=== PATIENT | male | born 1990 | race African-American/Black ===

== ENCOUNTER 2019-03-16 09:06 | Observation (INO) | payer BC, SELFPAY ==
[2019-03-16] MEDS ORDERED: Albuterol Sulfate 2.5 mg/0.5 ml Neb ONE ×3 (10:22→13:24)
[2019-03-16] MEDS ORDERED: Albuterol Sulfate 2.5 mg/3 ml Neb ONE ×2 (10:22→18:34)
[2019-03-16] MEDS ORDERED: Magnesium 2 GM/50 ML BAG (IN WATER) ONE (11:20)
[2019-03-16] MEDS ORDERED: Dexamethasone 10 MG/ML VIAL ONE (11:20)
[2019-03-16] MEDS ORDERED: methylPREDNISolone Sod Succ/PF 125 MG/2 ML VIAL ONE (11:20)
--- NOTE | 2019-03-16 11:20 | RAD ---
EXAM: Chest 2 views: HISTORY: Wheezing and difficulty breathing COMPARISON: None. FINDINGS: There is a normal-sized cardiomediastinal silhouette. There is no evidence of consolidation, mass, or pleural effusion. The bones are unremarkable. IMPRESSION: No evidence of acute cardiopulmonary disease
[2019-03-16 11:49] LABS: #Basophils 0.1 thou/uL (0.0-0.2); #Eosinphils 0.6 thou/uL (0.0-0.7); #Lymphocytes 1.5 thou/uL (1.20-3.40); #Monocytes 0.8 thou/uL (0.11-0.59); #Neutrophils 12.3 thou/uL (1.40-6.50); %Basophils 0.3 % (0.0-1.0); %Eosinophils 4.2 % (0.0-10.0); %Lymphocytes 9.6 % (21.0-51.0); %Monocytes 5.5 % (0.0-10.0); %Neutrophils 80.4 % (42.0-75.0); Hemoglobin 15.5 g/dL (14.0-18.0); Mean Corpuscular Hemoglobin 26.7 pg (27.0-31.0); Mean Corpuscular Volume 80.8 fL (78.0-98.0); Mean Platelet Volume 7.8 fL (7.4-10.4); Platelet Count 276 thou/uL (130-400); Red Blood Cell (RBC) Count 5.81 mill/uL (4.70-6.10); White Blood Cell (WBC) Count 15.3 thou/uL (4.8-10.8)
[2019-03-16 12:17] LABS: Anion Gap 17 mmol/L (10-20); BUN (Urea Nitrogen) 12 mg/dL (8.9-20.6); Calc. Creatinine Clearance 0 mL/min (70-130); Calcium 10.7 mg/dL (7.8-10.44); Carbon Dioxide 24 mmol/L (22-29); Chloride 100 mmol/L (98-107); Estimated GFR-MDRD Greater than 90; Glucose 110 mg/dL (70-105); Potassium 3.7 mmol/L (3.5-5.1); Sodium 137 mmol/L (136-145)
--- NOTE | 2019-03-16 14:09 | PDOC.FPRHP ---
- History of Present Illness Chief Complaint: SOB History of Present Illness: Pt is a 28 yo M who presents with SOB. He says he has had 2 previous hospitalizations in the past year. He had asthma bad as a child, but it has improved. He said he has used his inhaler 4 times in the past week. He said night before last he began coughing before bed and producing yellow sputum. He said he had the episode again last night and used his inhaler and took Advil pm then woke up SOB, so he took a shower and used his inhaler again, but it did not help. He has had rhinorrhea and congestion. He denies fever. No sick contacts. He says his asthma is exacerbated by heat and seasonal changes. He has woken 2 times over the past month short of breath. He works in construction. ED Course: He was given 3 breathing treatments, 2g mag, 2L NS, and steroids (Solumedrol 125 mg, Dexamethasone 10 mg) Chest xray: No acute Cardiopulm process. Hyper-expanded lungs. - History PMHx: Asthma PSHx: None FHx: Breast Cancer in [place] [facility] [place]. Social: Smokes marijuana occasionally. Has not smoked recently. Drinks socially , 4-5 beers with events. No tobacco products. - Review of Systems General: denies: fever/chills Eyes: denies: vision changes ENT: reports: nasal congestion, rhinorrhea Respiratory: reports: cough, congestion. denies: shortness of breath Cardiovascular: reports: paroxysmal nocturnal dyspnea. denies: chest pain, orthopnea Gastrointestinal: denies: nausea, vomiting, diarrhea Genitourinary: denies: dysuria Skin: denies: rashes Musculoskeletal: reports: pain (L paraspinal muscle pain) Neurological: denies: numbness, weakness - Vital signs BP: 128/88 HR: 123 RR: 21 Tmax: 97.8 Pox: 100% on 3L Wt: 81 kg - Physical Exam Constitutional: NAD, awake, alert and oriented HEENT: normocephalic and atraumatic, PERRLA, EOMI Neck: supple Chest: no-tender to palpation, no lesions Heart: normal S1/S2 -Heart: Tachycardic with regular rate -Lungs: Diffuse wheezing more prominent on the left. Abdomen: soft, non-tender, bowel sounds present Musculoskeletal: normal structure, normal tone, ROM grossly normal Neurological: no focal deficit, CN II-XII intact Skin: no rash/lesions Heme/Lymphatic: no unusual bruising or bleeding Psychiatric: normal mood and affect, good judgment and insight FMR H&P: Results - Labs Result Diagrams: 03/16/19 11:35 03/16/19 11:35 Lab results: WBC 15.3 thou/uL (4.8-10.8) H 03/16/19 11:35 Hgb 15.5 g/dL (14.0-18.0) 03/16/19 11:35 Hct 47.0 % (42.0-52.0) 03/16/19 11:35 MCV 80.8 fL (78.0-98.0) 03/16/19 11:35 Plt Count 276 thou/uL (130-400) 03/16/19 11:35 Neutrophils % 80.4 % (42.0-75.0) H 03/16/19 11:35 Sodium 137 mmol/L (136-145) 03/16/19 11:35 Potassium 3.7 mmol/L (3.5-5.1) 03/16/19 11:35 Chloride 100 mmol/L (98-107) 03/16/19 11:35 Carbon Dioxide 24 mmol/L (22-29) 03/16/19 11:35 BUN 12 mg/dL (8.9-20.6) 03/16/19 11:35 Creatinine 0.98 mg/dL (0.7-1.3) 03/16/19 11:35 Glucose 110 mg/dL (70-105) H 03/16/19 11:35 Calcium 10.7 mg/dL (7.8-10.44) H 03/16/19 11:35 FMR H&P: A/P - Problem List (1) Asthma exacerbation Current Visit: Yes Status: Acute Code(s): J45.901 - UNSPECIFIED ASTHMA WITH (ACUTE) EXACERBATION Qualifiers: Asthma severity: moderate - Plan Mr. Castillo is a 28 yo M with a history of asthma who presents with SOB. 1. Moderate Asthma Exacerbation Pt has diffuse wheezing on exam after 3 neb treatments, 2g mag, and steroids ( Solumedrol 125 mg and Dexamethasone 10 mg) * Home Medication: Proair * Asthma Exacerbation: 2 in 5 years. Brought on by seasonal changes and heat * He is on 3L sating 100% * Albuterol neb Q4H scheduled with Q2H prn * Prednisone 40 mg daily for 5 days * Cxray showed no infiltrate, but did show hyper-expanded lungs. * WBC: 15.3 most likely 2/2 steroids Diet: Regular Activity: Ad Gabby DVT Prophylaxis: None, Low VTE risk Lines: Peripheral Dispo: Obs, pt is currently stable. Will control his asthma symptoms and likely D/C within 2 days pending clinical course. FMR H&P: Upper Level - Plan Date/Time: 03/16/19 [id number] IMichael MD, have evaluated this patient and agree with findings/plan as outlined by manager internship resident. Pertinent changes/additions are listed here. Nilo Mallory is a 28 year old M with a PMH of Asthma and Seasonal Allergies who presented to the ED with a couple day history of dyspnea. Patient has had increased work of breathing and dyspnea over the last couple nights, occasionally waking him from sleep. He has used his ProAir HFA inhaler several times and initially, it improved his symptoms, but last night, it did not improve them. States that he has had 2 hospitalizations in the last year for asthma exacerbations. States that he does not take any daily inhalers, only has his rescue inhaler. He does take OTC medications for his allergies, which he states has been uncontrolled lately too. He denies any fevers, chills, chest pain, rashes, abdominal pain, n/v. In the ED, he was tachypneic and tachycardic, he was given 2 L NS, 2 Alb sulfate nebs, 1 duoneb, solumedrol 125 mg, dexamethasone 10 mg. His respiratory status improved and he was in less distress. On admission, his vitals were O2 sat 98 on 3L, HR 114, RR 22, afebrile. On exam, lungs were tight with expiratory wheezes. CXR showed no acute cardiopulmonary findings, lungs appears hyperexpanded. EKG showed sinus tachycardia, right atrial enlargement, pulmonary disease pattern. Labs were significant for WBC count of 15.3, CBC and CMP were otherwise normal. Patient is being admitted to obs/medical for moderate asthma exacerbation. Will continue q4hr Albuterol Sulfate with q2h prn alb sulfate. Start prednisone 40 mg po daily. Continue to monitor O2 sats, goal of at least 94%. Please see manager internship note above for full H&P, which I have reviewed and agree with. Addendum - Attending - Attending Attestation Date/Time: 03/17/19 7787 I personally evaluated the patient and discussed the management with Dr. Petty and Paulino on 03/16. I agree with the History, Examination, Assessment and Plan documented above with any addition or exceptions noted below. Patient is still having some mild shortness of breath but says he feels "10 times better" than when he came in. Continue nebs and steroids. Hopeful d/c in AM if continued improvement.
[2019-03-16] MEDS ORDERED: Senokot S 8.6-50 MG TAB PO PRN (16:04)
[2019-03-16] MEDS ORDERED: Albuterol Sulfate 1.25 MG/3 ML NEB NEB SCH (16:04)
[2019-03-16] MEDS ORDERED: Ondansetron ODT 4 MG TAB PO PRN (16:04)
[2019-03-16] MEDS ORDERED: Famotidine 20 MG TAB PO PRN (16:04)
[2019-03-16] MEDS ORDERED: Albuterol Sulfate 1.25 MG/3 ML NEB NEB PRN ×2 (16:04→16:06)
[2019-03-16 16:11] VITALS: BMI 24.1
[2019-03-16] MEDS: Albuterol Sulfate 1.25 MG/3 ML NEB NEB SCH ×2 (18:37→22:07)
[2019-03-17] MEDS: Albuterol Sulfate 1.25 MG/3 ML NEB NEB SCH ×2 (02:08→08:04)
--- NOTE | 2019-03-17 05:36 | PDOC.FM ---
- Subjective Subjective: Pt is doing well this morning. He is producing less sputum and says after his treatment at 4 this morning he has not had any symptoms of cough. - Objective MAR Reviewed: Yes Vital Signs & Weight: Vital Signs (12 hours) Temp Pulse Resp BP Pulse Ox 03/17/19 02:20 95 03/17/19 02:08 12 03/16/19 22:55 98.8 F 112 H 18 122/67 95 03/16/19 22:07 16 03/16/19 19:31 98.2 F 120 H 20 127/70 98 03/16/19 18:37 112 H 20 95 Weight Weight 80.739 kg I&O: 03/15/19 03/16/19 03/17/19 06:59 06:59 06:59 Intake Total 240 Balance 240 Result Diagrams: 03/16/19 11:35 03/16/19 11:35 Phys Exam - Physical Examination Constitutional: NAD HEENT: PERRLA, moist MMs Neck: no nodes, supple, full ROM Respiratory: no wheezing Mildly decrease breath sound most likely 2/2 to expanded lungs. Cardiovascular: no significant murmur, no rub Tachycardic with regular rhythm Gastrointestinal: soft, non-tender, positive bowel sounds Musculoskeletal: no edema, pulses present Neurological: moves all 4 limbs Lymphatic: no nodes Psychiatric: normal affect, A&O x 3 Skin: no rash, normal turgor Dx/Plan (1) Asthma exacerbation Code(s): J45.901 - UNSPECIFIED ASTHMA WITH (ACUTE) EXACERBATION Status: Acute Qualifiers: Asthma severity: moderate - Plan Plan: Mr. Castillo is a 28 yo M with a history of asthma who presents with SOB. 1. Moderate Asthma Exacerbation Pt has diffuse wheezing on exam after 3 neb treatments, 2g mag, and steroids ( Solumedrol 125 mg and Dexamethasone 10 mg) * Home Medication: Proair * Asthma Exacerbation: 2 in 5 years. Brought on by seasonal changes and heat * He is on 3L sating 100% * Albuterol neb Q4H scheduled with Q2H prn * Prednisone 40 mg daily for 5 days * Cxray showed no infiltrate, but did show hyper-expanded lungs. * WBC: 15.3 most likely 2/2 steroids Diet: Regular Activity: Ad Gabby DVT Prophylaxis: None, Low VTE risk Lines: Peripheral Dispo: Obs, pt is currently stable. Will control his asthma symptoms and will D/ C today with change in home med management. Recommend outpt f/u. Addendum - Attending - Attending Attestation Date/Time: 03/17/19817 I personally evaluated the patient and discussed the management with Dr. Bob. I agree with the History, Examination, Assessment and Plan documented above with any addition or exceptions noted below. Patient here for acute exacerbation of asthma. Currently on room air without issue. Consider escalating his outpatient control therapy during this time of year with weather changes. Continue Proair and steroids. Likely discharge today as not requiring inpatient intervention.
[2019-03-17] MEDS ORDERED: Albuterol Sulfate 2.5 mg/3 ml Neb ONE (08:01)
[2019-03-17] MEDS ORDERED: predniSONE 20 MG TAB PO SCH (09:00)
[2019-03-17] MEDS ORDERED: Albuterol Sulfate 2.5 mg/3 ml Neb NEB PRN (09:01)
[2019-03-17] MEDS ORDERED: Albuterol Sulfate 2.5 mg/3 ml Neb NEB SCH (10:30)
[2019-03-17 12:18] VITALS: BP 138/64; TEMP 98.3
--- NOTE | 2019-03-18 06:20 | DIS ---
DATE OF ADMISSION: 03/16/2019 DATE OF DISCHARGE: 03/17/2019 RESIDENT: Nitin Bob MD ADMITTING ATTENDING: Rickie Baum MD DISCHARGE ATTENDING: Francisco Javier Ferrer MD CONSULTS: None. PROCEDURES: * Chest x-ray that showed no acute findings, but his lungs were markedly hyper- inflated PRIMARY DIAGNOSIS: * Moderate asthma exacerbation DISCHARGE MEDICATIONS: 1. Prednisone 40 mg for 4 more days 2. Nebulizer machine 3. Albuterol sulfate 2.5 mg/3 mL q6 hours p.r.n. 0.083% solution 4. Singulair 10 mg at bedtime. 5. Advair HFA 115/21 inhaler 2 inhalations b.i.d. 6. ProAir HFA 2 puffs q.4 hours p.r.n. DISCONTINUED MEDICATIONS: 1. Albuterol nebs q4 scheduled. 2. Albuterol sulfate q2 p.r.n. HISTORY OF PRESENT ILLNESS: The patient is a 28-year-old male who presented with shortness of breath. He said he had 2 previous hospitalizations in the past. He had asthma as a child but it has improved. He said he used his inhaler 4 times in the past week. He said the night before last, he began coughing before bed and producing yellow sputum, but he did not think much of it. Then, last night and used his inhaler and took Advil PM, then went to bed. Later on, he woke up with shortness of breath and took a shower and used his inhaler again, but it did not help. He was convinced by a roommate to come in to the ED. He has rhinorrhea, congestion , yellow sputum production, and shortness of breath. He denies fever. No sick contacts. He says his asthma is exacerbated by heat and seasonal changes. 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 In the ED: He was given 3 breathing treatments, 2 g of magnesium, 2 L of normal saline, and steroids. He had a chest x-ray that showed no acute findings. He was tachycardic and tachypneic on exam. Originally, he was on 3 L, saturating 100%. He was weaned off the oxygen overnight and sating 98% on room air. On exam today, he has no wheezing. He has some decreased breath sounds, most likely 2/2 hyper-inflation of his lungs. DISCHARGE INSTRUCTIONS: * Location: Home. * Diet: Regular * Activity: Cardiopulmonary restrictions.He was recommended not to go into work upon discharge. * Followup: He should follow up with a primary care provider within the next 2 weeks. Job ID: [id number] MTDD
--- NOTE | 2019-03-21 15:36 | EKG ---
Test Reason : ASTHMA EXAC Blood Pressure : / mmHG Vent. Rate : 135 BPM Atrial Rate : 135 BPM P-R Int : 140 ms QRS Dur : 080 ms QT Int : 286 ms P-R-T Axes : 080 -65 057 degrees QTc Int : 429 ms Sinus tachycardia Right atrial enlargement Left axis deviation Pulmonary disease pattern Abnormal ECG Confirmed by FLEIPA BROWN ([id number]), sound editor ROSALINDA SELBY ([id number]) on 03/21/2019 3:35:41 PM Referred By: Confirmed By:FELIPA BROWN
== END 2019-03-17 13:33 | disposition home or self-care (01) ==
LOC: ERS 09:06 → 2SW 16:04
PROVIDERS: ADMIT Emergency Medicine; ATTEND Emergency Medicine
DX: J45.901 Unspecified asthma with (acute) exacerbation (principal); F17.210 Nicotine dependence, cigarettes, uncomplicated; F98.8 Other specified behavioral and emotional disorders with onset usually occurring in childhood and adolescence
CPT/HCPCS: 71046; 80048; 85025; 93005; 94640; 94644; 96361; 96365; 96375; G0378; J1100; J2930; J3475; J7512; J7611; J7620